=== PATIENT | female | born 1990 | race African-American/Black ===

== ENCOUNTER 2024-01-19 09:25 | Emergency (ER) | payer BC, OTHER ==
[2024-01-19] MEDS ORDERED: Lidocaine 1% w/Epinephrine 1:200K 30 ML VIAL ONE (10:19)
== END 2024-01-19 11:21 | disposition home or self-care (01) ==
LOC: CSHERS 09:25
DX: L02.412 Cutaneous abscess of left axilla (principal); L73.2 Hidradenitis suppurativa; I10 Essential (primary) hypertension; K21.9 Gastro-esophageal reflux disease without esophagitis; Z55.6 Problems related to health literacy
CPT/HCPCS: 10060